=== PATIENT | female | born 1995 | race Hispanic/Latino ===

== ENCOUNTER 2017-04-22 11:45 | Observation (INO) | payer BC, MEDICAID ==
[~2017-04-22] VITALS: Ht 154.9 cm; Wt 96.6 kg
[2017-04-22] MEDS: LACTATED RINGERS 1000ML IV SCH ×2 (12:14→13:26)
[2017-04-22 12:25] LABS: APPEARANCE,URINE Clear (CLEAR); BILIRUBIN,URINE Negative (NEGATIVE); COLOR,URINE Yellow (YELLOW); GLUCOSE, URINE (UA) Negative (NEGATIVE); KETONES,URINE Negative (NEGATIVE); LEUKOCYTE ESTERASE ,URINE Large (NEGATIVE); NITRATE,URINE Negative (NEGATIVE); OCCULT BLOOD,URINE Negative (NEGATIVE); PROTEIN,URINE Negative (NEGATIVE); UROBILINOGEN,URINE 0.2 mg/dL (0.2-1.0)
[2017-04-22 12:39] LABS: BACTERIA,URINE Many /HPF (None Seen); RBC,URINE None Seen /HPF (0-1)
== END 2017-04-22 15:35 | disposition home or self-care (01) ==
LOC: LDH 11:45
PROVIDERS: ADMIT Obstetrics & Gynecology; ATTEND Obstetrics & Gynecology
DX: O24.419 Gestational diabetes mellitus in pregnancy, unspecified control (principal); Z3A.36 36 weeks gestation of pregnancy
CPT/HCPCS: 76819; 81001; G0378 ×5; J7120; 96360; 96361

== ENCOUNTER 2017-04-24 19:33 | Observation (INO) | payer BC, MEDICAID ==
[~2017-04-24] VITALS: Ht 154.9 cm; Wt 96.6 kg
[2017-04-24] MEDS ORDERED: GLYB2.5 PO (19:50)
[2017-04-24 20:03] LABS: APPEARANCE,URINE SL CLOUDY (CLEAR); BILIRUBIN,URINE NEGATIVE (NEGATIVE); COLOR,URINE YELLOW (YELLOW); GLUCOSE, URINE (UA) NEGATIVE (NEGATIVE); KETONES,URINE NEGATIVE (NEGATIVE); LEUKOCYTE ESTERASE ,URINE MODERATE (NEGATIVE); NITRATE,URINE NEGATIVE (NEGATIVE); OCCULT BLOOD,URINE NEGATIVE (NEGATIVE); PROTEIN,URINE NEGATIVE (NEGATIVE); UROBILINOGEN,URINE 0.2 mg/dL (0.2-1.0)
[2017-04-24 20:47] LABS: BACTERIA,URINE Few /HPF (None Seen); RBC,URINE 0-1 /HPF (0-1)
[2017-04-24 20:48] LABS: SQUAMOUS EPITHELIAL CELL,UR Few /LPF (0-2)
[2017-04-24] MEDS ORDERED: LACTATED RINGERS 1000ML 1,000 ML IV PRN (21:00)
[2017-04-24] MEDS: LACTATED RINGERS 1000ML 1,000 ML IV SCH (21:23)
[2017-04-25] MEDS: LACTATED RINGERS 1000ML 1,000 ML IV SCH (05:52)
== END 2017-04-25 09:52 | disposition home or self-care (01) ==
LOC: EDH 19:33 → LDH 19:34
PROVIDERS: ADMIT Obstetrics & Gynecology; ATTEND Obstetrics & Gynecology
DX: O36.8130 Decreased fetal movements, third trimester, not applicable or unspecified (principal); Z3A.36 36 weeks gestation of pregnancy; Z86.32 Personal history of gestational diabetes
CPT/HCPCS: 59025; 76819; 81001; 96360; 96361; 99285; G0378 ×14; J7120 ×3

== ENCOUNTER 2017-04-30 12:25 | Inpatient (IN) | payer BC, MEDICAID ==
[~2017-04-30] VITALS: Ht 154.9 cm; Wt 96.2 kg
[~2017-04-30 12:25] MED LIST: GLYB2.5 PO
[2017-04-30] MEDS ORDERED: CEFTRIAXONE 1GM/D5W 50ML 50 ML IV SCH (12:45)
[2017-04-30 13:13] LABS: HEMATOCRIT 38.3 % (36-48); MEAN CORPUSCULAR HEMOGLOBIN 28.4 pg (27.0-33.0); MEAN CORPUSCULAR HGB CONC 33.3 g/dL (32.0-36.0); MEAN CORPUSCULAR VOLUME 85.4 fL (80-100); PLATELET COUNT (AUTO) 423 K/uL (130-400); RED BLOOD CELL COUNT(AUTO) 4.48 MIL/uL (4.00-5.50); RED CELL DISTRIBUTION WIDTH 13.6 % (11.0-15.5); WHITE BLOOD COUNT (AUTO) 13.6 K/uL (4.8-10.8)
[2017-04-30 13:15] LABS: APPEARANCE,URINE Clear (CLEAR); BILIRUBIN,URINE Negative (NEGATIVE); COLOR,URINE Yellow (YELLOW); GLUCOSE, URINE (UA) Negative (NEGATIVE); KETONES,URINE Negative (NEGATIVE); LEUKOCYTE ESTERASE ,URINE Moderate (NEGATIVE); NITRATE,URINE Negative (NEGATIVE); OCCULT BLOOD,URINE Negative (NEGATIVE); PH,URINE 7.5 (5.0-8.0); PROTEIN,URINE Negative (NEGATIVE); UROBILINOGEN,URINE 0.2 mg/dL (0.2-1.0)
[2017-04-30 13:29] LABS: BACTERIA,URINE Few /HPF (None Seen); RBC,URINE None Seen /HPF (0-1); SQUAMOUS EPITHELIAL CELL,UR Few /LPF (0-2)
[2017-04-30] MEDS: OSELTAMIVIR PHOSPHATE 75 MG CAP PO SCH (15:00)
[2017-04-30] MEDS ORDERED: AZITHROMYCIN 250 MG TABLET PO ONE (15:00)
[2017-04-30] MEDS: LACTATED RINGERS 1000ML 1,000 ML IV SCH ×2 (16:25→23:39)
[2017-04-30 18:25] VITALS: BP 104/67
[2017-04-30 19:56] VITALS: BP 138/84
[2017-04-30 23:20] VITALS: BP 113/68
[2017-05-01] MEDS: OSELTAMIVIR PHOSPHATE 75 MG CAP PO SCH ×3 (00:28→20:22)
[2017-05-01 03:40] VITALS: BP 92/47
[2017-05-01] MEDS: LACTATED RINGERS 1000ML 1,000 ML IV SCH ×3 (06:24→22:29)
[2017-05-01 07:31] LABS: HEPATITIS Bs ANTIGEN SCREEN P Negative (Negative)
[2017-05-01 08:07] VITALS: BP 115/58
[2017-05-01] MEDS: CLINDAMYCIN 900 MG/D5% WATER 50 ML IV SCH ×2 (10:55→19:32)
[2017-05-01 11:51] VITALS: BP 131/72
[2017-05-01] MEDS ORDERED: CEFTRIAXONE 1GM/D5W 50ML 50 ML IV ONE (12:38)
[2017-05-01] MEDS ORDERED: CEFTRIAXONE SODIUM 1 GM IVP SCH (13:00)
[2017-05-01] MEDS: AZITHROMYCIN 250 MG TABLET PO SCH (14:04)
[2017-05-01 16:05] VITALS: BP 123/73
[2017-05-01 19:13] VITALS: BP 123/79
[2017-05-01] MEDS ORDERED: OXYTOCIN-LR 20 UNITS/1000 ML 1,000 ML IV SCH (21:45)
[2017-05-01 22:31] VITALS: BP 116/65
[2017-05-02] MEDS ORDERED: LACTATED RINGERS 1000ML 1,000 ML IV ONE (02:20)
[2017-05-02] MEDS ORDERED: OXYTOCIN 10 USP UNITS/ML ONE ×2 (02:20→17:56)
[2017-05-02] MEDS: CLINDAMYCIN 900 MG/D5% WATER 50 ML IV SCH ×2 (02:37→10:46)
[2017-05-02] MEDS: LACTATED RINGERS 1000ML 1,000 ML IV PRN (04:38)
[2017-05-02] MEDS: LACTATED RINGERS 1000ML 1,000 ML IV SCH (09:03)
[2017-05-02] MEDS: OSELTAMIVIR PHOSPHATE 75 MG CAP PO SCH ×2 (09:03→20:45)
[2017-05-02] MEDS: PROMETHAZINE HCL 25 MG/ML 1ML AMPULE IM SCH (09:23)
[2017-05-02] MEDS: MEPERIDINE-PF 50 MG/ML SYG IVP SCH (09:27)
[2017-05-02] MEDS ORDERED: ROPIVACAINE 0.2%200ML EPIDURAL 200 ML EP SCH (11:30)
[2017-05-02] MEDS ORDERED: LACTATED RINGERS 500 ML 500 ML IV PRN (11:30)
[2017-05-02] MEDS ORDERED: EPHEDRINE SULFATE 50 MG/ML AMPULE IVP PRN ×2 (11:30→21:30)
[2017-05-02] MEDS ORDERED: NALOXONE HCL 0.4 MG/1 ML ML IV PRN (11:30)
[2017-05-02] MEDS: AZITHROMYCIN 250 MG TABLET PO SCH (14:09)
[2017-05-02] MEDS ORDERED: GENTAMICIN SULFATE 240 MG in SODIUM CHLORIDE 0.9% 100 ML IV PRN (17:00)
[2017-05-02] MEDS ORDERED: CLINDAMYCIN 900 MG/D5% WATER 50 ML IVPB PRN (17:00)
[2017-05-02] MEDS ORDERED: ONDANSETRON HCL 4 MG/2 ML VIAL ONE (17:02)
[2017-05-02] MEDS ORDERED: FENTANYL CITRATE PF 50 MCG/1 ML 2ML VIAL ONE ×2 (17:04→17:33)
[2017-05-02] MEDS ORDERED: PROPOFOL 10 MG/ML 20ML VIAL IV ONE (17:27)
[2017-05-02] MEDS ORDERED: DURAMORPH PF1 MG/ML 10ML AMP IV ONE (17:48)
[2017-05-02] MEDS ORDERED: PHENYLEPHRINE HCL 10 MG/ML 1ML VIAL IV ONE (17:58)
[2017-05-02] MEDS ORDERED: SODIUM CHLORIDE 0.9% 1000ML 1,000 ML IV SCH (18:48)
[2017-05-02] MEDS ORDERED: OXYTOCIN-LR 20 UNITS/1000 ML 1,000 ML IV PRN (18:48)
[2017-05-02] MEDS ORDERED: MEPERIDINE-PF 75 MG/ML SYG IM PRN (19:00)
[2017-05-02] MEDS ORDERED: PROMETHAZINE HCL 25 MG/ML 1ML AMPULE IM PRN ×2 (19:00→21:30)
[2017-05-02 19:20] VITALS: BP 137/73
[2017-05-02] MEDS ORDERED: ONDANSETRON HCL MDV 20ML 2 MG/ML VIAL IVP PRN ×2 (21:30)
[2017-05-02] MEDS ORDERED: DiphenhydrAMINE HCL 50 MG/ML VIAL IVP PRN (21:30)
[2017-05-02] MEDS ORDERED: MORPHINE SULFATE 2 MG/ML 1ML SYG IVP PRN (21:30)
[2017-05-02] MEDS ORDERED: ONDANSETRON HCL 4 MG/2 ML 8 MG in SODIUM CHLORIDE 0.9% 50 ML IVP NR (21:30)
[2017-05-02] MEDS ORDERED: NALOXONE HCL 0.4 MG/1 ML ML IVP PRN ×2 (21:30)
[2017-05-02] MEDS ORDERED: HYDROCODONE/ACETAMINOPHEN 5/325 MG TAB PO PRN ×2 (21:30)
[2017-05-02 23:49] VITALS: BP 123/70
[2017-05-03] MEDS: LACTATED RINGERS 1000ML 1,000 ML IV PRN (02:08)
[2017-05-03 03:55] VITALS: BP 105/64
[2017-05-03 06:41] LABS: HEMATOCRIT 31.1 % (36-48); MEAN CORPUSCULAR HEMOGLOBIN 28.9 pg (27.0-33.0); MEAN CORPUSCULAR VOLUME 85.2 fL (80-100); PLATELET COUNT (AUTO) 323 K/uL (130-400); RED BLOOD CELL COUNT(AUTO) 3.65 MIL/uL (4.00-5.50); RED CELL DISTRIBUTION WIDTH 13.6 % (11.0-15.5)
[2017-05-03 07:55] VITALS: BP 114/68
[2017-05-03] MEDS: OSELTAMIVIR PHOSPHATE 75 MG CAP PO SCH ×2 (08:39→21:13)
[2017-05-03] MEDS ORDERED: LANOLIN 30GM OINTMENT TP PRN (08:45)
[2017-05-03] MEDS ORDERED: BISACODYL 10 MG SUPP.RECT RC PRN (08:45)
[2017-05-03] MEDS: DOCUSATE SODIUM 100 MG CAP PO SCH ×2 (08:54→21:12)
[2017-05-03] MEDS: SIMETHICONE 80 MG TAB.CHEW PO PRN ×4 (08:55→21:13)
[2017-05-03] MEDS: IBUPROFEN 600 MG TABLET PO PRN ×3 (08:57→21:14)
[2017-05-03] MEDS: PROMETHAZINE HCL 25 MG/ML 1ML AMPULE IM SCH (09:15)
[2017-05-03] MEDS: MEPERIDINE-PF 50 MG/ML SYG IVP SCH (09:15)
[2017-05-03 11:10] VITALS: BP_SYST 112; BP_SYST 96; BP_DIAS 60; BP_DIAS 61
[2017-05-03] MEDS: AZITHROMYCIN 250 MG TABLET PO SCH (14:25)
[2017-05-03 15:44] VITALS: BP 100/61
[2017-05-03 19:17] VITALS: BP 111/64
[2017-05-03 23:45] VITALS: BP 120/68
[2017-05-04 03:15] VITALS: BP 106/66
[2017-05-04 07:58] VITALS: BP 116/76
[2017-05-04] MEDS: OSELTAMIVIR PHOSPHATE 75 MG CAP PO SCH (08:38)
[2017-05-04] MEDS: SIMETHICONE 80 MG TAB.CHEW PO PRN (08:38)
[2017-05-04] MEDS: DOCUSATE SODIUM 100 MG CAP PO SCH (08:38)
[2017-05-04] MEDS: IBUPROFEN 600 MG TABLET PO PRN (08:40)
[2017-05-04] MEDS ORDERED: ACET1TAB12 PO (10:56)
[2017-05-04] MEDS ORDERED: OSEL75 PO (10:57)
== END 2017-05-04 11:15 | disposition home or self-care (01) | DRG 765 ==
LOC: OBSVTOIN 12:25 → LDH 12:25 → WSH 18:21 → LDH 05-01 20:25 → WSH 05-02 19:05
PROVIDERS: ADMIT Obstetrics & Gynecology; ATTEND Obstetrics & Gynecology
PROC: 10D00Z1 Extraction of Products of Conception, Low, Open Approach (ICD-10-PCS; principal; 2017-05-02 17:15)
DX: O76 Abnormality in fetal heart rate and rhythm complicating labor and delivery (principal); D62 Acute posthemorrhagic anemia; O62.2 Other uterine inertia; J11.1 Influenza due to unidentified influenza virus with other respiratory manifestations; O99.52 Diseases of the respiratory system complicating childbirth; O90.81 Anemia of the puerperium; O24.429 Gestational diabetes mellitus in childbirth, unspecified control; O99.824 Streptococcus B carrier state complicating childbirth; Z37.0 Single live birth; Z3A.38 38 weeks gestation of pregnancy; Z88.0 Allergy status to penicillin
CPT/HCPCS: 36415; 59025; 59510; 81001; 82948; 85027; 86592; 86850; 86900; 86901; 87340; 87804; 96360; 96361; A4218; A4344; A4450; A4606; J0696; J2175; J2274; J2370; J2405; J2550; J2590; J2704; J3010; J3490; J7030; J7120

== ENCOUNTER 2018-12-06 12:04 | Emergency (ER) | payer BC, MEDICAID ==
[~2018-12-06 12:04] MED LIST changes: +ACET1TAB12 PO; -GLYB2.5 PO; +OSEL75 PO
[2018-12-06 12:31] LABS: BASOPHILS % (AUTO) 0.9 % (0.0-5.0); EOSINOPHILS % (AUTO) 1.8 % (0.0-8.0); HEMATOCRIT 39.5 % (36-48); LYMPHOCYTES % (AUTO) 22.7 % (21.0-51.0); MEAN CORPUSCULAR HEMOGLOBIN 29.4 pg (27.0-33.0); MEAN CORPUSCULAR VOLUME 86.3 fL (79-99); MONOCYTES % (AUTO) 5.2 % (3.0-13.0); NEUTROPHILS % (AUTO) 69.4 % (40.0-77.0); PLATELET COUNT (AUTO) 382 K/uL (130-400); RED BLOOD CELL COUNT(AUTO) 4.58 MIL/uL (4.00-5.50); RED CELL DISTRIBUTION WIDTH 14.6 % (11.0-15.5)
== END 2018-12-06 15:44 | disposition home or self-care (01) ==
LOC: EDH 12:04
DX: O03.9 Complete or unspecified spontaneous abortion without complication (principal); O24.419 Gestational diabetes mellitus in pregnancy, unspecified control; Z3A.08 8 weeks gestation of pregnancy; Z88.0 Allergy status to penicillin
CPT/HCPCS: 36415; 76817; 84702; 85025; 86900; 86901